=== PATIENT | female | born 1930 | race Caucasian/White ===

== ENCOUNTER → 2017-04-07 | Outpatient (CLI) | payer MEDICARE, MEDICAID ==
[~2017-04-07] MED LIST: AMLO1TAB36; ASPI-785; BENA1POW2; GLYB1.252; LORA-249; METF100C2; METO5TAB2; OMEP10CA4; SIMV5TAB53
== END | disposition home or self-care (01) ==
LOC: RAD 16:36
PROVIDERS: ATTEND Internal Medicine Cardiovascular Disease
DX: S52.512A Displaced fracture of left radial styloid process, initial encounter for closed fracture (principal); S52.612A Displaced fracture of left ulna styloid process, initial encounter for closed fracture; X58.XXXA Exposure to other specified factors, initial encounter; Y93.89 Activity, other specified; Y92.89 Other specified places as the place of occurrence of the external cause; Y99.8 Other external cause status
CPT/HCPCS: 73090; 73130